=== PATIENT | female | born 1975 | race American Indian/Alaskan Native ===

== ENCOUNTER 2017-04-17 21:38 | Emergency (ER) | payer SELFPAY ==
[2017-04-18] MEDS ORDERED: MOTRIN PO ONE (03:53)
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
[2017-04-18 05:01] VITALS: BP 147/81
== END 2017-04-18 05:01 | disposition home or self-care (01) ==
LOC: ED 21:38
DX: S46.912A Strain of unspecified muscle, fascia and tendon at shoulder and upper arm level, left arm, initial encounter (principal); S56.912A Strain of unspecified muscles, fascia and tendons at forearm level, left arm, initial encounter; S66.912A Strain of unspecified muscle, fascia and tendon at wrist and hand level, left hand, initial encounter; V49.49XA Driver injured in collision with other motor vehicles in traffic accident, initial encounter; Y93.89 Activity, other specified; Y92.89 Other specified places as the place of occurrence of the external cause; Y99.8 Other external cause status
CPT/HCPCS: 99283